=== PATIENT | male | born 1970 | race Caucasian/White ===

== ENCOUNTER → 2024-04-24 06:38 | Day surgery (SDC) | payer BC, SELFPAY | LOC: GI 06:38 | PROVIDERS: ATTENDING PHYSICIAN Specialist; FAMILY PHYSICIAN Family Medicine | DX: Z12.11 Encounter for screening for malignant neoplasm of colon (principal); D12.3 Benign neoplasm of transverse colon; K57.30 Diverticulosis of large intestine without perforation or abscess without bleeding; K22.89 Other specified disease of esophagus; K31.7 Polyp of stomach and duodenum; Z83.719 Family history of colon polyps, unspecified | CPT/HCPCS: 45385; 43239; 88305 ==

== ENCOUNTER → 2024-07-17 07:54 | Outpatient (REF) | payer BC, OTHER, SELFPAY | LOC: HWRAD 07:54 | PROVIDERS: ATTENDING PHYSICIAN Family Medicine; REFERRING PHYSICIAN Otolaryngology Facial Plastic Surgery | DX: J32.9 Chronic sinusitis, unspecified (principal) | CPT/HCPCS: 70486 ==

== ENCOUNTER → 2024-11-06 07:16 | Outpatient (REF) | payer BC, OTHER, SELFPAY | LOC: MRI 07:16 | PROVIDERS: ATTENDING PHYSICIAN Physician Assistant Surgical; FAMILY PHYSICIAN Family Medicine | DX: M25.561 Pain in right knee (principal) | CPT/HCPCS: 73721 ==

== ENCOUNTER 2025-08-06 14:44 | Observation (INO) | payer BC, OTHER, SELFPAY ==
[2025-08-06] VITALS (12 sets, daily range): BP systolic 123–156; BP diastolic 70–98; PULSE 71–85; BMI 31.2
[2025-08-06 10:37] LABS: Hematocrit 40.4 % (39.0-52.0); Hemoglobin 13.7 g/dL (13.0-18.0); Mean Corp Hgb Conc. 33.9 g/dL (33.0-37.0); Mean Corpuscular Volume 89.6 fL (80.0-94.0); Nucleated Red Blood Cells % 0 % (-); Platelet Count 250 10^3/uL (130-400); Red Cell Dist. Width 12.2 % (11.5-14.5)
[2025-08-06 10:51] LABS: APTT 26.4 Sec (23.4-35.0); INR 0.99; PT 13.4 Sec (11.4-14.6)
[2025-08-06 11:21] LABS: ALT (SGPT) 19 U/L (0-50); AST (SGOT) 19 U/L (17-59); Albumin 4.6 g/dl (3.5-5.0); Alkaline Phosphatase 78 U/L (38-126); Blood Urea Nitrogen 16 mg/dl (9-20); Calcium 9.1 mg/dl (8.4-10.2); Carbon Dioxide 28 mmol/L (22-30); Chloride 103 mmol/L (98-107); Glucose 84 mg/dl (70-99); Potassium 4.6 mmol/L (3.5-5.1); Sodium 138 mmol/L (135-145); Total Protein 7.2 g/dl (6.3-8.2); eGFR > 60.00
--- NOTE | 2025-08-06 14:21 | HPS.HSE ---
Addendum entered and electronically signed by Ye Porter MD 08/06/25 15:22:
This is an addendum to H&P written by Ann Marie Booth on 08/06/25. �Patient seen and examined independently with HELPER TEACHER.
55-year-old male past medical history of hyperlipidemia presenting with bilateral facial numbness and right pectoral tingling for 2 months intermittently. �Vertigo for past week while driving particular with head movement.
No symptoms currently.
Vital signs unremarkable. �Neurological examination unremarkable now apart from some mild tingling of the face.
Labs unremarkable.
CTA head and neck shows no evidence of large vessel occlusion or arterial dissection.
Concern for CVA. Check MRI brain, aspirin and Plavix started, check A1c and lipid panel, neurology consulted. �Continue statin.
Original Note:
Family Physician
-
Family Physician: Kj Levy
Chief Complaint
-
facial numbness
dizzy
History of Present Illness
55-year-old with past medical history for hyperlipidemia presented to us with bilateral facial numbness for more than 2 months. Patient stated more facial numbness on the left side. Patient also complained of right-sided chest numbness. A week
ago he felt dizziness while he was driving. If he moves his head fast, He feels the things moving around him. He felt tired today morning again, it lasted for few hours, patient denied any headache or syncope, patient denied any fever, chills,
cough, congestion. Patient denied any chest pain or short of breath. Patient denied any abdominal pain, nausea, vomiting or diarrhea. Patient denied dysuria hematuria.
Medical History
Past Medical History
Past Medical History: Reports Other
Additional Past Medical History:
Migraine, dyslipidemia, GERD, acid reflux, sleep
Past Surgical History: Reports Other
Additional Past Surgical History:
Vasectomy, finger surgery
Social History
Tobacco: Former Smoker
Alcohol: Occasional
Drug: None
Personal:
Living: With Family
Family History
Family History: Not pertinent
Allergies / Home Medications
Allergies reflects when Allergies were last updated in [email or web address].
Home Medications with original date entered in [email or web address]
Allergy/Medication List:
Allergies
Allergy/AdvReac Type Severity Reaction Status Date / Time
No Known Allergies Allergy Unverified 08/06/25 09:12
Home Medications
atorvastatin 20 mg tablet (Lipitor) 20 mg PO DAILY 08/06/25
Review of Systems
-
Constitutional: Reports No Symptoms
EENT: Reports No Symptoms
Respiratory: Reports No Symptoms
Cardiac: Reports No Symptoms
Abdomen/GI: Reports No Symptoms
: Reports No Symptoms
Musculoskeletal: Reports No Symptoms
Skin: Reports No Symptoms
Neurological: Reports Dizzy and Numbness
Endocrine: Reports No Symptoms; Denies Polyuria
Hematologic/Lymphatic: Reports No Symptoms
Psych: Reports No Symptoms
Physical Exam
Vital Signs
Vital Signs
Temp Pulse Resp BP Pulse Ox
98.0 F 68 9 142/86 97
08/06/25 09:12 08/06/25 10:45 08/06/25 10:45 08/06/25 10:21 08/06/25 10:45
Physical Exam
General: Well Developed, Well Nourished and No Apparent Distress
HEENT: NormoCephalic, Moist mucous membranes and Atraumatic
Respiratory: Clear
Cardiac: S1/S2 and Regular Rhythm; No Murmur or Rub
GI: Soft, Non Tender, Non Distended and Normal Bowel Sounds; No Organomegaly
Rectal: Deferred by Provider
Musculoskeletal: No Clubbing, No Cyanosis and No Edema
Skin: No Rash
Neuro: AO x 3 and Nonfocal/grossly intact
Psych: Calm
Laboratory Results
-
08/06/25 10:29
08/06/25 10:29
Laboratory Results
PT 13.4 Sec (11.4-14.6) 08/06/25 10:
INR 0.99 08/06/25 10:
APTT 26.4 Sec (23.4-35.0) 08/06/25 10:29
Total Bilirubin 1.3 mg/dl (0.2-1.3) 08/06/25 10:
AST 19 U/L (17-59) 08/06/25 10:29
ALT 19 U/L (0-50) 08/06/25 10:29
Alkaline Phosphatase 78 U/L (38-126) 08/06/25 10:29
Data Reviewed
-
CT Scan: Report Reviewed by me
Lab Data: Labs Reviewed by me
Impression/Plan
-
# Intermittent left facial numbness/vertigo rule out acute CVA
- CTA negative
- Obtain MRI
- Obtain A1c, lipid profile
- Atorvastatin and aspirin, Plavix continued
- PT/OT consulted
- Neurology consulted
#HLD
-statin continued
#DVT prophylaxis
-scd
#CODE status
-full code
[2025-08-06] MEDS: ASPIRIN 325 MG PO (14:54)
[2025-08-06] MEDS: PLAVIX 300 MG PO (14:54)
--- NOTE | 2025-08-06 15:15 | ED.GENMED ---
History of Present Illness
General
Chief Complaint: Dizziness
Time Seen by Provider: 08/06/25 09:46
History of Present Illness
History of Present Illness:
see MDM
Phy Exam
Physical Exam
Physical Exam:
see MDM
Course
Orders/Labs/Results
Orders:
Orders
08/06/25 10:16
Electrocardiogram (*1) Stat
Reason for Study: Other
Other Reason for Exam: Headache
CT Head & Neck Angio W/wo IV Urgent
Comment:
Reason For Exam: L facial numbness, R chest numbness, dizziness
Cardiac Monitoring- Treatment ONCE
EKG- Treatment ONCE
Orthostatic VS- Treatment ONCE
08/06/25 10:29
Complete Blood Count/With Diff Urgent
Comprehensive Metabolic Panel Urgent
Lyme Progressive Urgent
Comment: ADD ON
PTT Urgent
Prothrombin Time Urgent
TSH Reflex To Free T4 Urgent
08/06/25 14:10
Aspirin 325 mg PO NOW STA
Clopidogrel Bisulfate [Plavix] 300 mg PO NOW STA
08/06/25 14:24
Admit/Transfer Patient As Directed
Co-Sign Provider:
Level of Care: Observation services
Assign to:: Telemetry
Physician / Group: eloina
Diagnosis: cva/tia
Reason for Telemetry: CVA/TIA
Date to Stop Telemetry: 08/09/25
Time to Stop Telemetry: 11:00
08/06/25 14:25
PRN Pain Medication Management As Directed
May give lesser potent ordered pain med per pt: Yes
preference::
Protocol:: Medication orders for pain may be administered in a
manner that supports deferring to patient preference
when the pt is:
- Requesting an ordered lesser potent pain medication.
Least to most potent pain medications are defined
as: acetaminophen < NSAID < tramadol < opioids
(morphine, oxycodone, hydromorphone).
- Requesting a lesser dose of the same medication IF
ORDERED.
- Requesting a less intrusive route of administration
if both routes are prescribed by the provider (PO <
IV).
08/06/25 14:31
Code Status As Directed
Resuscitation Status: Full Code
08/06/25 14:56
Troponin I Urgent
08/06/25 17:02
Acetaminophen [Tylenol/Feverall] 650 mg RECTAL Q4HPRN PRN
Acetaminophen [Tylenol] 650 mg PO Q4HPRN PRN
08/06/25 17:02
Case Management Consult ONCE
Case Management Consult: Discharge Planning
Comment: stroke/tia
DIETARY IP CONSULT Routine
Reason for Consult: stroke/TIA
NEUROLOGY CONSULT Urgent
Consulting Provider: Ruddy Friedman
Was physician already notified: Yes
It Admin Urgent
Glycohemoglobin (HgbA1c) Routine
MR Brain Without Contrast Routine
Comment:
Reason For Exam: stroke/TIA
Recent pill cam endoscopy?: No
Activity As Directed
Activity Level: As Tolerated
NIH Stroke Scale As Directed
Directions: Per protocol
Comment: every shift and with any change in condition or mental status
Neurological Checks As Directed
Frequency: q4h
Additional Instructions:: q4h x 24h upon admission to the floor, then qshift & with any change in condition
and mental status
Patient Education As Directed
Type: Stroke education packet
Comment: provide to patient and family
Pneumatic Compression Sleeves As Directed
Type: Thigh high
Vital Signs As Directed
Frequency: Per unit guidelines
Call for:: BP greater than 180/105 mmHg or less than 100/60 mmHg
Ot Eval And Treat Routine
Pt Eval And Treat Routine
Activity Level: As Tolerated
Speech Therapy Eval & Treat Routine
DX Deep Vein Thrombosis Video Routine
08/07/25 06:00
Cardiovascular Evaluation IN AM
08/07/25 08:00
Aspirin Chewable [Low Strength Aspirin] 81 mg PO DAILY
Clopidogrel Bisulfate [Plavix] 75 mg PO DAILY
08/09/25 11:00
DC Protocol for Telemetry ONCE
Abnormal Lab Results
08/06/25
10:29
RBC 4.51 L 10^6/uL
(4.70-6.10)
MPV 10.7 H fL
(7.4-10.4)
08/06/25 10:29
08/06/25 10:29
Vital Signs
Initial and Last Documented VS:
Initial Vital Signs
Temp Pulse Resp BP Pulse Ox
36.7 C 70 18 156/86 99
08/06/25 09:12 08/06/25 09:12 08/06/25 09:12 08/06/25 09:12 08/06/25 09:12
Last Documented Vital Signs
Temp Pulse Resp BP Pulse Ox
36.6 C 66 18 131/70 100
08/06/25 17:12 08/06/25 17:12 08/06/25 17:12 08/06/25 17:12 08/06/25 17:12
MDM/Problems Addressed
MDM/Problems Addressed:
Note:
CHIEF COMPLAINT(S)
- Facial numbness and tingling
- Vertigo
HISTORY OF PRESENT ILLNESS
The patient is a 55-year-old male who presents with symptoms of intermittent facial numbness and occasional vertigo. Two months ago, the patient experienced a sensation of left face numbness with tingling on right side of his chest wall that
isdescribed as feeling 'like a shock.' This symptom has been intermittent and is not influenced by head positioning. Episodes typically last up to a minute, but he doesn't have correlation bewteen facial problem and chest wall problem. Approximately
one week ago, the patient began experiencing episodic vertigo, triggered by rapid head movements or positional changes, but not always associated with spinning sensations. This has occurred approximately three times in the last week. The patient
reports that the left side of the face recently went numb while driving. There is no chest pain with physical exertion. There is also no reported weakness, facial droop, or changes in facial muscle movement.
The patient notes worsening vision over the past three months, particularly with the left eye, affecting reading, even while wearing contact lenses.
The patient has been taking atorvastatin, omeprazole, and a glucagon-like peptide-1 receptor agonist since December without significant gastrointestinal issues. Weight loss has been achieved since starting new medication protocols.
PAST MEDICAL AND SURGICAL HISTORY
The patient takes medications for hypertension and hypercholesterolemia.
FAMILY HISTORY
- Father had brain cancer.
- Mother had an unspecified 'womans cancer.'
- Sisters have had breast cancer and lymphoma.
SOCIAL HISTORY
The patient consumes alcohol occasionally, about once every two weeks, but not heavily.
PHYSICAL EXAM
GENERAL: Alert , in no apparent distress
HEAD: NCAT
EYE: pupils equal and reactive, no nystagmus, no photophobia
NECK: Supple,full rom, nontender
ENT: o/p clr, mmm.
CARDIAC: Regular rate and rhythm . no edema
LUNGS: Clear breath sounds bilaterally, no acute respiratory distress, no wheezes/rales/rhonchi
ABDOMEN: Soft, without focal tenderness, no r/g, no cvat
NEUROLOGICAL: Alert and orientedx 4, cn intact other than a slight late diminished left facial sensation but there is no facial drooping or weakness, no facial asymmetry, 5/5 strength in UE/LE, sensation intact, romberg neg, ambulates without
assistance, neg pronator drift
SKIN: Warm and dry, skin intact.
MUSCULOSKELETAL: No edema, well perfused.
PSYCH: Normal and appropriate interaction.
- Nursing notes reviewed and vital signs reviewed.
PLAN
- Obtain a computed tomography (CT) scan with contrast to evaluate brain and neck vessels.
- Perform blood tests and an electrocardiogram (EKG) to assess for cardiac rhythm abnormalities.
- Consider neurologist consultation based on CT findings and symptoms.
- Nurse to perform blood draw and administer EKG.
DIFFERENTIAL DIAGNOSIS
The Differential Diagnosis includes, in no particular order, and is not limited to:
1. Transient ischemic attack
2. Stroke
3. Multiple sclerosis
4. Trpilett�s palsy
5. Migraine-associated vertigo
6. Vestibular neuritis
7. Brain tumor
8. Peripheral neuropathy
9. Labyrinthitis
10. Thyroid disorder
CARE-UPDATE
08/06/25 - 14:22
The patients current presentation does not show evidence of any previous stroke or vascular abnormalities such as aneurysms, dissections, or artery narrowing. An MRI is planned for tomorrow to rule out a minor stroke, with hospital admission
arranged for this purpose. Aspirin and clopidogrel have been initiated as antiplatelet therapy due to stroke concerns. The possibility of Lyme disease is being considered, with a Lyme titer to be added to the laboratory workup. There is noted
asymmetry in blinking, with the left eye blinking more easily than the right, accompanied by lingering numbness on the right side of the face. Current laboratory results, including sodium levels and thyroid function, are normal. The patient
initially had difficulty accessing an MRI as an outpatient, sent in by PCP for MRI
d/w neurologist who agreed that MRI is necessary
*Pulse Oximetry
SaO2: 97
Oxygen Mode of Delivery: Room air
Patient hypoxic: no (100)
*Critical Care Note
Total Time (30-74mins, 75-104mins- exclusive of procedures): Not Applicable
ED Attending Note
-
Portions of this chart may have been created with voice recognition software.� Occasional wrong word or��sound alike� substitutions may have occurred due to the inherent limitations of voice recognition software.
Discharge Plan
Departure
Patient Disposition: Admit
Date of Disposition: 08/06/25
Time of Disposition: 14:15
Admit to: Telemetry
Presentation/result/management discussed w/ accepting MD/DO: Hospitalist
Condition: Fair
Covid-19: Not Applicable
Discharge Problem:
Dizziness, rule out stroke
Interventions
Interventions:
*Risk Screen - Suicide Last Done: 08/06/25 09:17
*General Assessment Last Done: 08/06/25 09:17
*Neglect/Abuse Screening Last Done: 08/06/25 09:17
*ED- Fall Risk Assessment Last Done: 08/06/25 17:05
*ED COVID-19 Vaccine History Last Done: 08/06/25 17:05
*ED Influenza Vaccine History Last Done: 08/06/25 17:05
*Nursing Disposition Last Done: 08/06/25 17:05
ED- Neurological Assessment Last Done: 08/06/25 10:47
ED- Cardiac Assessment Last Done: 08/06/25 17:05
ED Swallowing Screen Last Done: 08/06/25 10:53
Discharge Date and Time
Discharge Date/Time: 08/06/25 17:06
--- NOTE | 2025-08-06 15:23 | CM ---
Addendum entered by Adia Gabriel 08/06/25 16:08:
OBS form completed and given to community engagement specialist
Original Note:
Patient seen at bedside with olive in ED. Patient stated that he lives with olive in a 2 story home. patient has CPAP at home and his PCP is Dr. Levy. Patient uses the [facility] in [place] for pharmacy needs. Patient plan is home with no needs.
Patient states he is for an MRI tomorrow am. CM reviewed OBS status and will provide OBS form for patient to complete. CM will continue to follow for discharge planning needs.
Plan; home with no needs pending medical treatment plan,
[2025-08-06 15:34] LABS: Troponin I 0.013 ng/ml
--- NOTE | 2025-08-06 18:15 | PTCARENOTE ---
Pt arrived to unit from ED around 1714. Able to ambulate from stretcher to bed independently. No pain reported at this time. He is AAOx3, pleasant. Oriented to room and staff. NIH is 1 upon admission. One point given for intermittent
numbness/tingling. See neuro check assessment. All needs met at this time. Plan of care ongoing.
[2025-08-07 03:00] VITALS: BP 121/76
[2025-08-07 07:00] VITALS: BP 120/74
[2025-08-07 07:30] LABS: HDL Cholesterol 37 mg/dl; LDL Cholesterol, Calculated 59 mg/dl; Very Low Density Lipoprotein 24 mg/dl (0-30)
--- NOTE | 2025-08-07 08:38 | CON.NEURO4 ---
Consultation - Neurology 4
-
CONSULTING PHYSICIAN: Dr. Ruddy Friedman
REFERRING PHYSICIAN: Dr. Cezar Alves
DICTATED BY: Dr. Ruddy Friedman
DATE/TIME OF REQUEST: 08/07/2025
DATE/TIME OF CONSULTATION: 08/07/2025
Reason for Consultation: Dizziness and facial numbness.
ASSESSMENT AND PLAN:
The patient is a 55 years old male who presented for symptoms of intermittent facial numbness that started about 2 months ago. He also complained of dizziness which he says is like vertigo. Episodes typically last up to a minute. Approximately one
week ago, the patient began experiencing episodic vertigo, triggered by rapid head movements or positional changes, but not always associated with spinning sensations. The patient was able to walk well in the hallway today. He denies dizziness at
this time. The patient is back to his baseline at this time.
. Meclizine 25 mg TID PRN.
. Neurologic Examination is normal.
. MRI brain: There is no abnormal signal intensity on diffusion imaging to suggest acute infarct. No abnormal signal intensity, evidence of mass, mass effect, midline shift, or extra-axial collection.
. CTA head/neck: No evidence of large vessel occlusion, or arterial dissection.
Follow-up with neurology as outpatient.
Discussed with the hospitalist Dr. Cezar Alves.
History of Present Illness:
The patient is a 55 years old male who presented for symptoms of intermittent facial numbness that started about 2 months ago. The vertigo becomes worse due to rapid movements of his head to either side. Episodes typically last up to a minute.
Approximately one week ago, the patient began experiencing episodic vertigo, triggered by rapid head movements or positional changes, but not always associated with spinning sensations. This has occurred approximately three times in the last week.
The patient reports that the left side of the face recently went numb while driving. There is also no reported weakness, facial droop, or changes in facial muscle movement.
The patient notes worsening vision over the past three months. The patient was able to walk normally in the hallway without any complaint of vertigo.
Review of Systems:
Patient denies headache, chest pain, shortness of breath, fever, chills, nausea and vomiting.
Neurologic Examination:
Alert and oriented x 3,
Speech is clear,
Cranial nerves II to XII grossly intact,
The motor strength is grossly 5/5 bilaterally in the upper and lower extremities,
The sensations are intact,
The cerebellar examination does not show limb ataxia,
The patient's gait was within normal limits and he was able to walk well in the hallway.
Vital Signs and Labs
-
Vital Signs and Labs:
Vital Signs
Temp Pulse Resp BP Pulse Ox
36.6 C 70 18 120/74 95
08/07/25 07:00 08/07/25 07:00 08/07/25 07:00 08/07/25 07:00 08/07/25 07:00
Lab Results
08/06/25 10:29
08/06/25 10:29
PT 13.4 Sec (11.4-14.6) 08/06/25 10:29
INR 0.99 08/06/25 10:29
APTT 26.4 Sec (23.4-35.0) 08/06/25 10:29
Sodium 138 mmol/L (135-145) 08/06/25 10:29
Potassium 4.6 mmol/L (3.5-5.1) 08/06/25 10:29
BUN 16 mg/dl (9-20) 08/06/25 10:29
Glucose 84 mg/dl (70-99) 08/06/25 10:29
Calcium 9.1 mg/dl (8.4-10.2) 08/06/25 10:29
LDL Cholesterol, Calc 59 mg/dl 08/07/25 06:50
Medications
-
Active Medications
Generic Name Dose Route Start Last Admin
Trade Name Freq PRN Reason Stop Dose Admin
Acetaminophen 650 mg 08/06/25 17:02
Acetaminophen 650 Mg Rectal Suppository RECTAL 09/03/25 17:01
Q4HPRN PRN
SAM, mild pain, or temp >100.4F
Acetaminophen 650 mg 08/06/25 17:02
Acetaminophen 325 Mg Tablet PO 09/03/25 17:01
Q4HPRN PRN
SAM, mild pain, or temp >100.4F
Aspirin 81 mg 08/07/25 08:00 08/07/25 08:39
Aspirin 81 Mg Chewable Tablet PO 09/04/25 07:59 81 mg
DAILY SILVINO Administration
Atorvastatin Calcium 20 mg 08/08/25 08:00
Atorvastatin (Lipitor) 20 Mg Tablet PO 09/05/25 07:59
DAILY SILVINO
Clopidogrel Bisulfate 75 mg 08/07/25 08:00 08/07/25 08:43
Clopidogrel 75 Mg Tablet PO 09/04/25 07:59 75 mg
DAILY SILVINO Administration
Sodium Chloride 0 flush 08/06/25 18:00
Sodium Chloride 0.9% (Flush) Syringe IV 09/03/25 17:59
PER PROTOCOL SILVINO
Home Medications
�Medication �Instructions �Recorded
atorvastatin 20 mg tablet (Lipitor) 20 mg PO DAILY High Cholesterol 08/06/25
cholecalciferol (vitamin D3) 25 25 mcg PO DAILY Supplement 08/06/25
mcg (1,000 unit) tablet (Vitamin
D3)
omeprazole 40 mg capsule,delayed 40 mg PO DAILY Gastrointestinal 08/06/25
release Issue
[2025-08-07] MEDS: LOW STRENGTH ASPIRIN 81 MG PO (08:39)
[2025-08-07] MEDS: PLAVIX 75 MG PO (08:43)
[2025-08-07 09:14] LABS: Glycohemoglobin (HgbA1c) 5.2 % (4.0-5.9)
--- NOTE | 2025-08-07 09:29 | W.PN.HOSP.TC ---
Addendum entered and electronically signed by Cezar Alves MD 08/07/25 11:44:
Total time spent on d/c = 31 min. This included today's physical exam, progress note, review of laboratory and diagnostic data, preparation of discharge documents and prescriptions, and discussions about the pt's hospital course and discharge plan
with the patient and other medical physiologist involved in the patient's care.
Original Note:
Today's Communication/Plan
-
see plan
Assessment / Plan
Assessment / Plan
Gen: NAD, AAOx3.
Eyes: EOMI, PERRLA, no scleral icterus.
Neck: supple.
CV: RRR, +S1/S2, no m/r/g.
Resp: CTAB, no rales, wheezes, or rhonchi.
Abd: +BS, soft, NT, ND
Skin: No rashes.
Neuro: Decreased sensation in L V1-V3, otherwise CN 2-12 intact, non-focal.
Psych: Normal mood and affect.
CTA head/neck:
1. No evidence of large vessel occlusion, or arterial dissection.
2. No significant abnormality appreciated on noncontrast head CT.
Intermittent left facial numbness/vertigo:
-imaging above, CTA head/neck unremarkable
-MRI brain done, read pending
-neuro just saw in c/s and I discussed the case with Dr. Friedman
-restart statin (was not ordered on admission). Will need to increase statin to 40mg if CVA POS.
-LDL 59
-cont ASA/plavix for now
-Highly doubt acute CVA, symptoms likely peripheral in etiology, will follow results of MRI brain
HLD:
-restart statin (was not ordered on admission). Will need to increase statin to 40mg if CVA POS.
Obesity due to excess calories
Pt's updated at bedside.
FULL/SCDs
Anticipated Discharge: Today
Subjective/Interval History
-
Date of Service: August 07, 2025
Reports L-sided facial paraesthesias.
Objective Data
-
Vital Signs:
Vital Signs
Temp Pulse Resp BP Pulse Ox
98 F 70 18 120/74 95
08/07/25 07:00 08/07/25 07:00 08/07/25 07:00 08/07/25 07:00 08/07/25 07:00
I&O
08/06/25 08/07/25 08/08/25
06:59 06:59 06:59
Intake Total 240 / 240 180 / 180
Balance 240 / 240 180 / 180
--- NOTE | 2025-08-07 10:46 | PTOTSP ---
Speech Therapy Evaluation
Pt at a slightly elevated risk of aspiration given L sided numbness. MRI results revealed no intracranial abnormality. Pt accepted trials of regular solids and thin liquids with functional oral phase. No overt s/sx of aspiration. Pt on room air,
lungs clear per MD documentation, and WBC WNL.
Recommend:
1. Regular solids and thin liquids
2. Medication as best tolerated
3. Standard aspiration precautions
4. CHARGE ENTRY SPECIALIST signing off
[2025-08-07 11:00] VITALS: BP 128/79
--- NOTE | 2025-08-07 13:10 | CM ---
MD entered order for discharge.
Pt said he was ready for discharge.
His SO Christine will drive him home.
He declined VN
PLAN Home with no needs
--- NOTE | 2025-08-07 13:15 | W.DCSUMMARY ---
Discharge Summary
Discharge Data
Date of Admission: 08/06/25
Date of Discharge: 08/07/25
-
Pending Results: No
Hospital Course
Primary diagnoses:
Bilateral (L>R) facial numbness
Episodes of vertigo
Paraesthesias in R pectoralis muscle
Secondary diagnoses:
Hyperlipidemia
Consultants:
Neurology
Imaging:
CTA head/neck:
1. No evidence of large vessel occlusion, or arterial dissection.
2. No significant abnormality appreciated on noncontrast head CT.
MRI brain: No acute intracranial abnormality noted.
Hospital course: 55-year-old male who presented yesterday with multiple chief complaints including bilateral facial numbness, right pectoral tingling, and vertigo as outlined in the H&P done on admission. The patient had a CT angiogram of the head
and neck which was unremarkable. He was placed on aspirin and Plavix. He had an MRI of the brain that did not show any acute intracranial abnormality. He was seen in consultation by neurology. I did discuss the case with Dr. Jaimes. The patient's
symptoms were likely peripherally neurologic in etiology. Meclizine as needed was ordered on discharge for vertigo. The patient was discharged in medically stable condition.
Discharge Plan
-
Patient Disposition: Home (Routine Discharge)
Discharge Diagnosis/Procedures: facial numbness, episodes of vertigo, paraesthesias in R pectoralis muscle
Condition: Good
Diet: Low Cholesterol
Activity: As tolerated
Driving Restrictions: As prior to admission
Referrals:
Kj Levy DO [Family Provider, Family Practice] - in less than 1 week
Prescriptions:
New
meclizine 25 mg tablet
25 mg PO BID PRN (Reason: vertigo) Qty: 14 0RF
Continued
atorvastatin [Lipitor] 20 mg Tablet
20 mg PO DAILY
omeprazole 40 mg Capsule,Delayed Release(Dr/Ec)
40 mg PO DAILY
cholecalciferol (vitamin D3) [Vitamin D3] 25 mcg (1,000 unit) Tablet
25 mcg PO DAILY
Discharge Orders:
Discharge Patient (As Directed); Ordered 08/07/25
Ordered By: Cezar Alves
Discharge Date and Time
Discharge Date/Time: 08/07/25 12:10
Print Language: URDU
[2025-08-09 12:26] LABS: Lyme Antibody Screen, EIA Negative (Negative)
== END 2025-08-07 12:10 | disposition home or self-care (01) ==
LOC: 3 WEST ACU 14:44
PROVIDERS: Physician Assistant; Registered Nurse; ADMITTING PHYSICIAN Hospitalist; ATTENDING PHYSICIAN Internal Medicine; CONSULT PHYSICIAN Psychiatry & Neurology Neurology; EMERGENCY PHYSICIAN Emergency Medicine; FAMILY PHYSICIAN Family Medicine
DX: R20.0 Anesthesia of skin (principal); R42 Dizziness and giddiness; R20.2 Paresthesia of skin; Z79.899 Other long term (current) drug therapy; I10 Essential (primary) hypertension; E66.09 Other obesity due to excess calories; Z68.31 Body mass index [BMI] 31.0-31.9, adult; E78.00 Pure hypercholesterolemia, unspecified; Z79.02 Long term (current) use of antithrombotics/antiplatelets; Z79.82 Long term (current) use of aspirin; Z87.891 Personal history of nicotine dependence
CPT/HCPCS: 70496; 70498; 70551; 80053; 80061; 83036; 84443; 84484; 85025; 85610; 85730; 86618; 92610; 93005; 97161; 99285; G0378; Q9967